=== PATIENT | female | born 1985 | race Caucasian/White ===

== ENCOUNTER 2023-11-15 06:53 | Inpatient (IN) | payer BC ==
[~2023-11-15] VITALS: Ht 167.6 cm; Wt 79.5 kg
[2023-11-16] VITALS (40 sets, daily range): BP systolic 108–150; BP diastolic 61–93; PULSE 71–111; TEMP 97.6–98.5
--- NOTE | 2023-11-16 06:25 | NUR ---
0625PT AMBULATORY TO UNIT WITH SPOUSE. PT CHANGED INTO CLEAN GOWN. PT COMFORTABLE IN BED. 0632EFM AND TOCO PLACED AT THIS TIME BY THIS RN. EFM TRACING CAT I. VITAL SIGNS STABLE. PT REPORTS POSITIVE MOVEMENT. PT REPORTS FEELING OCCASIONAL CTX BUT NOTHING WITH A REGULAR PATTERN. PT DENIES LOF AND DENIES VAGINAL BLEEDING. 0650IV STARTED AT THIS TIME. LABS DRAWN AND SENT TO LAB. POC DISCUSSED WITH PT. PT VERBALIZES UNDERSTANDING. 0715IVF STARTED AT THIS TIME. 0720SVE AT THIS TIME BY THIS RN. -/-3. PT TOLERATED FAIR. EFM TRACING CAT I. 0724PITOCIN STARTED AT THIS TIME.
[2023-11-16 07:10] LABS: MEAN CELL VOLUME 95 fl (80.0-100.0); MEAN CORPUSCULAR HEMOGLOBIN 33 pg (27-31); MEAN CORPUSCULAR HGB CONC 34 g/dl (33.0-37.0); MEAN PLATELET VOLUME 10.7 fl (7.4-10.4); PLATELET COUNT 172 K/mm3 (130-400); RED BLOOD COUNT 3.99 M/mm3 (4.10-5.30); REDCELL DISTRIBUTION WIDTH-CV 13.3 % (11.5-14.5)
[2023-11-16] MEDS ORDERED: SYNTHROID0.05 MG/TA PO (07:47)
[2023-11-16] MEDS ORDERED: PRENATAL TABLET PO (07:47)
[2023-11-16] MEDS ORDERED: OMEGA-3 1000 MG1 CAP PO (07:47)
[2023-11-16 07:53] LABS: BAND 10 % (0-10); LYMPHOCYTE 19 % (20.0-51.0); NEUTROPHILS 65 % (42.0-75.2)
[2023-11-16 07:54] LABS: PLATELET ESTIMATE NORMAL (NORMAL)
--- NOTE | 2023-11-16 08:30 | NUR ---
0825DR ANDINO ON UNIT. 0828DR THU AT BEDSIDE. DISCUSSES POC WITH PT. PT VERBALIZES AGREEMENT. 0830SVE AT THIS TIME PER DR ANDINO. /2. AROM AT THIS TIME. MINIMAL AMOUNT OF CLEAR FLUID NOTED. PT TOLERATED WELL. EFM TRACING CAT I. PT VITAL SIGNS STABLE.
--- NOTE | 2023-11-16 11:37 | NUR ---
1120PT REQUESTED EPIDURAL AT THIS TIME. LR BOLUS STARTED AT THIS TIME. 1125CHRISTGISELLE JUDD NOTIFIED OF PT REQUEST FOR EPIDURAL. SARAH STATES SHE WILL BE THERE IN A FEW MINUTES. 1130CHITA JUDD AT BEDSIDE. SARAH DISCUSSES POC WITH PT. PT VERBALIZES AGREEMENT. 1132PT UP TO SITTING ON SIDE OF BED. PULSE OX PLACED. PT VITAL SIGNS STABLE. EFM TRACING CAT I. 1137SINGLE SHOT ADMINISTERED AT THIS TIME PER SARAH JUDD. 1140PT RETURNED TO BED. POSITIONED WEDGE LEFT. PT TOLERATED PROCEDURE WELL. PT VITAL SIGNS STABLE. EFM TRACING CAT I.
--- NOTE | 2023-11-16 13:00 | NUR ---
1300FOLEY PLACED AT THIS TIME BY THIS RN. SVE AT THIS TIME WELL. /-2. PT TOLERATED WELL. EFM TRACING CAT I. PT VITAL SIGNS STABLE. 1305PT REPOSITIONED RIGHT LATERAL WITH PEANUT BALL.
--- NOTE | 2023-11-16 14:33 | NUR ---
1405THIS RN WENT TO ROTATE PT. THIS RN OBSERVED LOTS OF BLOODY SHOW. SVE AT THIS TIME PER THIS RN. 1410SECOND CHECK SVE BY SUSANNAH REYNA AT THIS TIME. 1. 1415NCATHY NURSE AND CHARGE NURSE NOTIFIED. DR ANDINO NOTIFIED. AND HE STATES HE IS ON HIS WAY. 1420VARIABLE DECEL NOTED AT THIS TIME. SUSANNAH RN AT BEDSIDE TO ASSIST. FHR RECOVERS. ROOM AND SUPPLIES SET UP FOR DELIVERY. 1422FOLEY REMOVED AT THIS TIME BY THIS RN. 1425DR PRIDDLE ON UNIT. 1427DR NORRISDDNELI AT BEDSIDE. PT PUSHES DURING A CTX. DR ANDINO INSTRUCTS PT TO STOP PUSHING. 1429NURSERY NURSE NOTIFIED OF IMPENDING DELIVERY. DR ANDINO SETS UP FOR DELIVERY. 1433SVD OF VIABLE FEMALE INFANT AT THIS TIME PER DR ANDINO. PLACED ON MATERNAL ABDOMEN. CARE ASSUMED BY NURSERY NURSE. 1440SECOND DEGREE PERINEAL TEAR NOTED PER DR ANDINO. REPAIR BEGAN AT THIS TIME. 1450SVD OF PLACENTA AT THIS TIME PER DR ANDINO. PT VITAL SIGNS STABLE. FUNDUS FIRM AT U. LOCHIA WNL. 1457REPAIR FINISHED PER DR ANDINO. FUNDUS FIRM AT U. LOCHIA WNL. PT VITAL SIGNS STABLE. PT AND ROOM CLEANED UP. 1500BED PUT BACK TOGETHER. PERICARE PERFORMED. ICE PACK PLACED ON PERINEUM. PT COMFORTABLE IN BED. FUNDUS FIRM AT U. LOCHIA WNL.
[2023-11-17 02:45] VITALS: BP 121/75; PULSE 80; TEMP 98.1
[2023-11-17 08:00] VITALS: BP 115/76; PULSE 79; TEMP 97.9
[2023-11-17] MEDS ORDERED: MOTRIN 800800 MG/TAB PO (08:36)
--- NOTE | 2023-11-17 09:03 | NUR ---
Initial visit; Patient thanked Wire Wrapping Machine Operator for looking in on her and her new daughter. Wire Wrapping Machine Operator thanked family for choosing [facility]. Patient thanked Wire Wrapping Machine Operator for offering congratulations and God's blessings for a wonderful, healthy, happy New Year.
[2023-11-17 11:00] VITALS: BP 119/68; PULSE 91; TEMP 97.8
--- NOTE | 2023-11-17 16:10 | NUR ---
DISCHARGE TEACHING COMPLETED. EDUCATED ON FOLLOW UP APPOINTMENT AND PRESCRIPTION. QUESTIONS INVITED AND ANSWERED.
== END 2023-11-17 17:00 | disposition home or self-care (01) | DRG 807 ==
LOC: OB 11-16 06:19 → LDR 11-16 06:19 → OB 11-16 06:52
PROVIDERS: ADMIT Obstetrics & Gynecology
PROC: 10E0XZZ Delivery of Products of Conception, External Approach (ICD-10-PCS; principal; 2023-11-16)
PROC: 0KQM0ZZ Repair Perineum Muscle, Open Approach (ICD-10-PCS; 2023-11-16)
PROC: 10907ZC Drainage of Amniotic Fluid, Therapeutic from Products of Conception, Via Natural or Artificial Opening (ICD-10-PCS; 2023-11-16)
PROC: 3E033VJ Introduction of Other Hormone into Peripheral Vein, Percutaneous Approach (ICD-10-PCS; 2023-11-16)
DX: O48.0 Post-term pregnancy (principal); Z37.0 Single live birth; Z3A.40 40 weeks gestation of pregnancy; O99.284 Endocrine, nutritional and metabolic diseases complicating childbirth; E03.9 Hypothyroidism, unspecified; O26.893 Other specified pregnancy related conditions, third trimester; E88.819 Insulin resistance, unspecified; E55.9 Vitamin D deficiency, unspecified; O70.1 Second degree perineal laceration during delivery
CPT/HCPCS: J2590; J2795; J7120